=== PATIENT | female | born 1990 | race Caucasian/White ===

== ENCOUNTER 2017-10-30 22:39 | Emergency (ER) | payer OTHER ==
[~2017-10-30] VITALS: Ht 157.5 cm; Wt 63.5 kg
[~2017-10-30 22:39] MED LIST: AZITHROMYCIN; AZITHROMYCIN 2250 MG PO; BIRTH CONTROL; FLONASE 0.05%50 MCG NS; FOLIC ACID0.4 MG; HYDROCODON-ACE1 EAC7; MACROBID 100 M100 M1 PO; NAPROXEN 500MG500 MG PO; NOHOMEMEDICATIONS; NORCO 5-325 TA1 EACH PO; PROVENTIL IH; TESSALON200 MG PO
[2017-10-30 23:50] LABS: ABSOLUTE EOSINOPHILS 0.1 thou/uL (0.0-0.7); ABSOLUTE LYMPHOCYTES 2.1 thou/uL (0.8-5.3); ABSOLUTE MONOCYTES 0.7 thou/uL (0.0-1.2); ABSOLUTE NEUTROPHILS 8.5 thou/uL (1.6-8.1); BASOPHILS 0.2 %; EOSINOPHILS 0.7 %; HEMATOCRIT 35.8 % (37.0-47.0); HEMOGLOBIN 12.2 gm/dL (12.0-15.0); LYMPHOCYTES 18.3 %; MCH 29.2 pg (26.0-34.0); MCHC 34.1 g/dL (28.0-37.0); MCV 85.7 fL (80.0-100.0); MONOCYTES 5.9 %; MPV 7.3 fl. (7.2-11.1); NUCLEATED RBCS 0 /100WBC; PLATELET COUNT* 288 thou/uL (150-400); POLYS 74.9 %; RBC 4.18 mil/uL (4.20-5.00); RDW-CV 12.4 % (10.5-14.5); WBC 11.3 thou/uL (4.0-11.0)
[2017-10-30 23:52] LABS: CALCIUM 8.7 mg/dL (8.5-10.1); CREATININE 0.7 mg/dL (0.6-1.3); POTASSIUM 3.1 mmol/L (3.5-5.1)
[2017-10-30 23:57] LABS: TOTAL BILIRUBIN 0.3 mg/dL (<0.1-1.0); TOTAL PROTEIN 7.4 g/dL (6.4-8.2)
[2017-10-31] MEDS ORDERED: AUGMENTIN 875-1 EACH PO (00:06)
[2017-10-31 00:25] VITALS: BP 126/84
== END 2017-10-31 00:25 | disposition home or self-care (01) ==
LOC: M.ERS 22:39
PROVIDERS: Nurse Practitioner Family
DX: L04.0 Acute lymphadenitis of face, head and neck (principal); G43.909 Migraine, unspecified, not intractable, without status migrainosus; Z88.8 Allergy status to other drugs, medicaments and biological substances

== ENCOUNTER 2018-06-29 16:25 | Emergency (ER) | payer OTHER ==
[~2018-06-29] VITALS: Ht 157.5 cm; Wt 65.8 kg
[~2018-06-29 16:25] MED LIST changes: +AUGMENTIN 875-1 EACH PO
[2018-06-29] MEDS ORDERED: TAMIFLU30 MG PO (16:37)
[2018-06-29] MEDS ORDERED: AZITHROMYCIN 2250 MG PO (17:08)
[2018-06-29 18:22] VITALS: BP 121/70
== END 2018-06-29 18:23 | disposition home or self-care (01) ==
LOC: M.ERS 16:25
DX: J18.8 Other pneumonia, unspecified organism (principal); G43.909 Migraine, unspecified, not intractable, without status migrainosus; Z88.8 Allergy status to other drugs, medicaments and biological substances

== ENCOUNTER 2021-06-05 21:21 | Emergency (ER) | payer BC ==
[~2021-06-05] VITALS: Ht 157.5 cm; Wt 70.3 kg
[~2021-06-05 21:21] MED LIST changes: +TAMIFLU30 MG PO
[2021-06-06 03:20] VITALS: BP 113/66
--- NOTE | 2021-06-06 10:47 | EKG ---
[place] [address] ELECTROCARDIOGRAM REPORT Name: JUNIOR GILMORE [id number] Admission: 06/05/21 Attend Phys: Discharge: 06/06/21 Date of : 89 Date of Service: 06/05/212131 Report #: [id number] THIS REPORT FOR: //name// [facility] ED Test Date: 2021-06-05 Test Time: 21:32:19 Pat Name: JUNIOR GILMORE Department: Room: Gender: Staff Design Engineer: KEEGAN : 1990 Requested By: Brigida Craft Order Number: [id number] MD: Matthew Baez Measurements Intervals Divide Rate: 83 P: 59 CT: 121 QRS: 49 QRSD: 76 T: 43 QT: 351 QTc: 413 Interpretive Statements Sinus rhythm No previous ECG available for comparison Electronically Signed On 06-06-2021 10:46:49 LEATHER WHITENER by Matthew Baez [email or web address] <ELECTRONICALLY SIGNED> By: Matthew Baez MD, [facility] 06/06/21 1046 31 31 Matthew aBez MD, FACC /EPI
== END 2021-06-06 03:20 | disposition home or self-care (01) ==
LOC: M.ERS 21:21
DX: R07.89 Other chest pain (principal); Z20.822 Contact with and (suspected) exposure to COVID-19; G43.909 Migraine, unspecified, not intractable, without status migrainosus; Z88.8 Allergy status to other drugs, medicaments and biological substances